=== PATIENT | female | born 1975 | race African-American/Black ===

== ENCOUNTER 2023-08-16 11:19 | Emergency (ER) | payer MEDICAID ==
[~2023-08-16] VITALS: Ht 162.6 cm; Wt 68.0 kg
[2023-08-16 11:25] VITALS: BP 140/90; PULSE 115; RESP 16; TEMP 97.9; O2SAT 98
[2023-08-16] MEDS ORDERED: MECL-217 MT (16:20)
== END 2023-08-16 12:07 | disposition left against medical advice (07) ==
LOC: ER 11:19
DX: R42 Dizziness and giddiness (principal)
CPT/HCPCS: 99283

== ENCOUNTER 2023-08-16 13:20 | Emergency (ER) | payer MEDICAID ==
[~2023-08-16] VITALS: Ht 154.9 cm; Wt 64.0 kg
[2023-08-16 13:29] VITALS: O2SAT 99
[2023-08-16 15:42] LABS: BASOPHILS % 1.2 % (0.0-2.0); DIFFERENTIAL COMMENT 0; EOSINOPHILS % 11.9 % (0.0-5.0); HEMATOCRIT. 31.9 % (36.0-48.0); HEMOGLOBIN. 10.5 g/dL (12.0-16.0); MEAN CORPUSCULAR HEMOGLOBIN 24.2 pg (28.0-32.0); MEAN CORPUSCULAR HGB CONC 32.9 g/dL (31.0-37.0); MEAN CORPUSCULAR VOLUME 73.4 fL (81.0-99.0); MEAN PLATELET VOLUME 7.5 fl (7.4-10.4); MONOCYTES % 8.3 % (2.0-8.0); NEUTROPHILS % 55.6 % (40.0-76.0); PLATELET 447 x1000/uL (130-400); RED BLOOD CELL COUNT 4.34 mill/uL (4.2-5.4); RED CELL DISTRIBUTION WIDTH 18.9 % (11.6-14.6); WHITE BLOOD COUNT 8.7 x1000/uL (4.5-11.0)
[2023-08-16 15:49] LABS: CHLORIDE 110 mEq/L (98-107); POTASSIUM 3.9 mEq/L (3.5-5.1); SODIUM 142 mEq/L (136-145)
[2023-08-16 15:50] LABS: CARBON DIOXIDE 24 mEq/L (21-32)
[2023-08-16 15:51] LABS: CALCIUM 10.3 mg/dL (8.7-10.4)
[2023-08-16 15:55] LABS: CREATININE 0.9 mg/dL (0.6-1.0); GLUCOSE 101 mg/dL (70-105)
[2023-08-16 15:56] LABS: UREA NITROGEN BLOOD 9 mg/dL (9-23)
[2023-08-16] MEDS: MECLIZINE 12.5MG TABLET PO ONE (16:15)
[2023-08-16] MEDS ORDERED: MECL-217 MT (16:20)
[2023-08-16 18:05] VITALS: BP 138/88; PULSE 98; RESP 18; TEMP 98.2
== END 2023-08-16 19:56 | disposition home or self-care (01) ==
LOC: ER 13:20
DX: R42 Dizziness and giddiness (principal)
CPT/HCPCS: 99284; 70450; 80048; 85025; 36415; J8597